=== PATIENT | male | born 1965 | race African-American/Black ===

== ENCOUNTER 2024-06-16 20:17 | Emergency (ER) | payer OTHER ==
[~2024-06-16] VITALS: Ht 185.4 cm; Wt 95.5 kg
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
[2024-06-16 22:10] VITALS: TEMP 98.3
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
[2024-06-16 23:53] VITALS: BP 174/113
[2024-06-16 23:54] VITALS: PULSE 80; RESP 18; O2SAT 98
[2024-06-17] MEDS: LISINOPRIL 5 MG TAB PO ONE (00:02)
[2024-06-17] MEDS: traMADol HCL 50 MG TAB PO ONE (00:02)
[2024-06-17] MEDS: ACETAMINOPHEN 325 MG TAB PO ONE (00:03)
[2024-06-17] MEDS: hydroCHLOROthiazide 25 MG TAB PO ONE (00:04)
--- NOTE | 2024-06-17 04:09 | ECG ---
[facility] Test Date: 2024-06-16 Test Time: 20:24:57 Pat Name: Jeison Mccoy Department: ED Room: Gender: M [employer] Manager: ANUSHKA : 1965 Requested By: ELIZABETH BARRETO Order Number: [id number] Reading MD: Measurements Intervals [place] Rate: 89 P: 22 FL: 220 QRS: 31 QRSD: 101 T: 4 QT: 344 QTc: 419 Interpretive Statements Sinus rhythm Prolonged FL interval Left atrial enlargement Abnormal R-wave progression, late transition Borderline ST elevation, anterior leads Please click the below link to view image of tracing.
== END 2024-06-18 00:18 | disposition home or self-care (01) ==
LOC: EDBD 20:17 → ER 20:17
DX: R51.9 Headache, unspecified (principal); M25.532 Pain in left wrist; M54.9 Dorsalgia, unspecified; M54.2 Cervicalgia; I10 Essential (primary) hypertension; V89.2XXA Person injured in unspecified motor-vehicle accident, traffic, initial encounter; Y93.I9 Activity, other involving external motion; Y92.488 Other paved roadways as the place of occurrence of the external cause; Y99.8 Other external cause status
CPT/HCPCS: 70450; 72125; 72128; 72131; 73110; 93005